=== PATIENT | female | born 1985 | race African-American/Black ===

== ENCOUNTER 2016-05-21 11:47 | Emergency (ER) | payer MEDICAID ==
[~2016-05-21] VITALS: Ht 154.9 cm; Wt 117.9 kg
[2016-05-21 12:21] LABS: BASOPHILS # (AUTO) 0.1 /CMM (0.0-0.2); BASOPHILS % (AUTO) 0.9 % (0.0-2.0); DIFF TOTAL % 100 %; EOSINOPHILS # (AUTO) 0.4 /CMM (0.0-0.7); HEMATOCRIT 32 % (33-45); LYMPHOCYTES # (AUTO) 3.2 /CMM (0.8-4.8); LYMPHOCYTES % (AUTO) 26.7 % (20.0-44.0); MEAN CORPUSCULAR HEMOGLOBIN 24 PG (26.0-33.0); MEAN CORPUSCULAR HGB CONC 31 g/dl (31.0-36.0); MEAN CORPUSCULAR VOLUME 77 fL (82-100); MONOCYTES # (AUTO) 0.9 /CMM (0.1-1.30); MONOCYTES % (AUTO) 7.4 % (2.0-12.0); NEUTROPHILS # (AUTO) 7.5 /CMM (1.8-8.9); PLATELET COUNT (AUTO) 381 /CMM (150-450); RED BLOOD CELL COUNT(AUTO) 4.18 MIL/uL (4.0-5.2); WHITE BLOOD COUNT (AUTO) 12.1 K/uL (4.3-11.0)
[2016-05-21 12:23] LABS: KETONES,URINE Trace (NEGATIVE); LEUKOCYTE ESTERASE ,URINE Trace (NEGATIVE); PH,URINE 5.5 (5.0-8.0)
[2016-05-21 12:27] LABS: ADD UA MICROSCOPIC YES
[2016-05-21 12:28] LABS: PREGNANCY TEST URINE QUAL NEGATIVE (NEGATIVE)
[2016-05-21 12:30] LABS: CALCIUM, SERUM 8.9 mg/dL (8.5-10.1); CREATININE 0.9 mg/dL (0.6-1.3); POTASSIUM 3.8 mmol/L (3.5-5.1)
[2016-05-21] MEDS ORDERED: IV SET PRIMARY PUMP SET 1 EA INFUS.SET MC ONE (12:34)
[2016-05-21] MEDS ORDERED: IV NS 0.9% 1,000 ML ONE (12:34)
[2016-05-21] MEDS ORDERED: ONDANSETRON HCL/PF 4 MG/2 ML VIAL ONE (12:34)
[2016-05-21] MEDS ORDERED: IV SET PRIMARY 1 EA INFUS.SET MC ONE (12:34)
[2016-05-21] MEDS ORDERED: MORPHINE SULFATE INJ 4 MG/ML DISP.SYRIN ONE (12:34)
[2016-05-21 12:35] LABS: ALBUMIN 2.9 g/dL (3.4-5.0); BILIRUBIN,DIRECT 0.1 mg/dL (0.0-0.2); BILIRUBIN,TOTAL 0.2 mg/dL (0.2-1.0); INDIRECT BILIRUBIN 0.1 mg/dL (0.0-1.1); TOTAL PROTEIN, SERUM 8.1 g/dL (6.4-8.2)
[2016-05-21 12:38] LABS: RBC,URINE 21-50 /HPF (0-2)
[2016-05-21 12:39] LABS: ADD URINE CULTURE NO; WBC,URINE 0-2 /HPF (0-3)
[2016-05-21] MEDS: IV NS 0.9% 1,000 ML BAG IV ONE (12:45)
[2016-05-21] MEDS: ONDANSETRON HCL/PF 4 MG/2 ML VIAL IVP ONE (12:46)
[2016-05-21] MEDS: MORPHINE SULFATE INJ 2 MG/ML DISP.SYRIN IV ONE (12:47)
[2016-05-21 13:56] VITALS: BP 131/81
== END 2016-05-21 13:56 | disposition home or self-care (01) ==
LOC: ER 11:49
DX: R10.13 Epigastric pain (principal); K76.0 Fatty (change of) liver, not elsewhere classified; D64.9 Anemia, unspecified; Z88.2 Allergy status to sulfonamides; E66.9 Obesity, unspecified
CPT/HCPCS: 36415; 76705-TC; 80048-TC; 80076-TC; 81000-TC; 83690-TC; 84703-TC; 85025-TC; A4606; J2270; J2405; J7030; Z7610